=== PATIENT | female | born 1965 | race Caucasian/White ===

== ENCOUNTER 2016-12-20 15:28 | Outpatient (CLI) | payer BC | END 2016-12-20 20:42 | disposition home or self-care (01) | LOC: SRD 15:28 | PROVIDERS: ATTEND Internal Medicine | DX: R05 Cough (principal) | CPT/HCPCS: 71020-TC ==

== ENCOUNTER 2017-11-26 14:48 | Outpatient (CLI) | payer BC | END 2017-11-26 20:21 | disposition home or self-care (01) | LOC: SMA 14:48 | PROVIDERS: ATTEND Internal Medicine | DX: Z12.31 Encounter for screening mammogram for malignant neoplasm of breast (principal) | CPT/HCPCS: 77067 ==

== ENCOUNTER 2018-01-17 11:05 | Outpatient (CLI) | payer BC | END 2018-01-17 20:43 | disposition home or self-care (01) | LOC: SMA 11:05 | PROVIDERS: ATTEND Internal Medicine | DX: R92.2 Inconclusive mammogram (principal); R92.8 Other abnormal and inconclusive findings on diagnostic imaging of breast | CPT/HCPCS: 77065 ==

== ENCOUNTER 2019-05-27 12:23 | Outpatient (CLI) | payer BC | END 2019-05-27 21:12 | disposition home or self-care (01) | LOC: SRD 12:23 | PROVIDERS: ATTEND Internal Medicine | DX: Z01.818 Encounter for other preprocedural examination (principal) | CPT/HCPCS: 71046-TC ==

== ENCOUNTER 2019-07-30 06:00 | Day surgery (SDC) | payer BC ==
[~2019-07-30] VITALS: Ht 152.4 cm; Wt 88.5 kg
[2019-07-30] MEDS ORDERED: LR 1,000 ML IV SCH (10:06)
[2019-07-30] MEDS ORDERED: HYDROmorphone 1 MG INJ. 1 MG/ML AMPUL IVP PRN ×2 (10:15→10:30)
[2019-07-30] MEDS ORDERED: hydrALAZINE HCL 20 MG/ML VIAL IVP PRN (10:15)
[2019-07-30] MEDS ORDERED: ONDANSETRON HCL 4 MG/2 ML VIAL IVP PRN (10:15)
[2019-07-30] MEDS ORDERED: METOCLOPRAMIDE HCL 10 MG/2 ML VIAL IVP PRN (10:15)
[2019-07-30] MEDS ORDERED: HYDROmorphone 2 MG/ML VIAL IVP PRN (10:30)
[2019-07-30] MEDS ORDERED: HYDROmorphone 1 MG INJ. 1 MG/ML AMPUL ONE (10:36)
[2019-07-30 11:06] VITALS: BP_SYST 103
[2019-07-30] MEDS ORDERED: ONDANSETRON HCL 4 MG/2 ML VIAL ONE (11:34)
== END 2019-07-30 12:30 | disposition home or self-care (01) ==
LOC: SMU 06:00 → SDS 06:00
PROVIDERS: ATTEND Otolaryngology
DX: J35.01 Chronic tonsillitis (principal); G47.33 Obstructive sleep apnea (adult) (pediatric); Z91.048 Other nonmedicinal substance allergy status; Z98.890 Other specified postprocedural states; Z90.710 Acquired absence of both cervix and uterus
CPT/HCPCS: 42826; 88304; J1170; J2405; J7120